=== PATIENT | male | born 1985 | race Two or more races ===

== ENCOUNTER 2021-02-13 20:13 | Emergency (ER) | payer MEDICAID ==
[~2021-02-13] VITALS: Ht 182.9 cm; Wt 98.0 kg
[2021-02-13] MEDS ORDERED: MORPHINE SULFATE 4 MG/ML CPJ (NOT FOR IM USE) IV STA (21:50)
[2021-02-13] MEDS ORDERED: SODIUM CHLORIDE 0.9% 1,000 ML IV ONE (22:00)
[2021-02-13 22:27] LABS: BASOPHILS % 0.3 % (0.0-2.0); EOSINOPHILS % 0.8 % (0.0-5.0); HEMATOCRIT. 40.4 % (42.0-52.0); HEMOGLOBIN. 13.9 g/dL (14.0-18.0); LYMPHOCYTES % 19.7 % (20.0-50.0); MEAN CORPUSCULAR HEMOGLOBIN 30.7 pg (28.0-32.0); MEAN CORPUSCULAR VOLUME 89.5 fL (80.0-94.0); MEAN PLATELET VOLUME 9.4 fl (7.4-10.4); MONOCYTES % 7.3 % (2.0-8.0); NEUTROPHILS % 71.9 % (40.0-76.0); PLATELET 320 x1000/uL (130-400); RED BLOOD CELL COUNT 4.52 mill/uL (4.7-6.1); RED CELL DISTRIBUTION WIDTH 14.1 % (11.6-14.6)
[2021-02-13 22:34] LABS: CHLORIDE 106 mEq/L (98-107)
[2021-02-14] MEDS ORDERED: NAPR-681 MT (00:58)
[2021-02-14] MEDS ORDERED: LORAZEPAM 0.5MG TABLET PO ONE (01:00)
[2021-02-14 01:05] VITALS: BP 138/74
== END 2021-02-14 01:10 | disposition home or self-care (01) ==
LOC: ER 20:13
DX: M79.601 Pain in right arm (principal); R20.0 Anesthesia of skin; J45.909 Unspecified asthma, uncomplicated
CPT/HCPCS: 36415; 71045; 80053; 84484; 85025; 93005; 96361; 96374; 99285; J2270; J7030

== ENCOUNTER 2021-06-09 07:38 | Emergency (ER) | payer MEDICAID ==
[~2021-06-09] VITALS: Ht 182.9 cm; Wt 88.0 kg
[~2021-06-09 07:38] MED LIST: NAPR-681 MT
[2021-06-09 07:45] VITALS: BP 137/98
[2021-06-09] MEDS ORDERED: ASPIRIN 81MG TABLET PO ONE (09:00)
[2021-06-09 09:43] LABS: BASOPHILS % 0.1 % (0.0-2.0); EOSINOPHILS % 0.5 % (0.0-5.0); HEMATOCRIT. 44.6 % (42.0-52.0); HEMOGLOBIN. 14.9 g/dL (14.0-18.0); LYMPHOCYTES % 15.9 % (20.0-50.0); MEAN CORPUSCULAR HEMOGLOBIN 29.9 pg (28.0-32.0); MEAN CORPUSCULAR VOLUME 89.4 fL (80.0-94.0); MEAN PLATELET VOLUME 7.9 fl (7.4-10.4); NEUTROPHILS % 76.5 % (40.0-76.0); PLATELET 450 x1000/uL (130-400); RED BLOOD CELL COUNT 4.99 mill/uL (4.7-6.1); RED CELL DISTRIBUTION WIDTH 13.9 % (11.6-14.6)
[2021-06-09 09:46] LABS: CHLORIDE 101 mEq/L (98-107)
[2021-06-09 09:54] LABS: ETHANOL BLOOD < 10 mg/dL
[2021-06-09] MEDS ORDERED: ONDA4TAB5 MT (11:09)
[2021-06-09] MEDS ORDERED: TOPUD MT (11:09)
== END 2021-06-09 11:28 | disposition home or self-care (01) ==
LOC: ER 07:38
DX: R07.89 Other chest pain (principal); J45.909 Unspecified asthma, uncomplicated; Z88.6 Allergy status to analgesic agent
CPT/HCPCS: 36415; 71045; 80053; 80320; 83880; 84484; 84550; 85025; 93005; 99285; G0480